=== PATIENT | male | born 1995 | race Two or more races ===

== ENCOUNTER 2021-09-05 21:59 | Emergency (ER) | payer SELFPAY ==
[~2021-09-05] VITALS: Ht 177.8 cm; Wt 73.5 kg
[2021-09-05 22:00] VITALS: BP 149/89
== END 2021-09-05 22:52 | disposition home or self-care (01) ==
LOC: ER 22:03
DX: S60.511A Abrasion of right hand, initial encounter (principal); V43.52XA Car driver injured in collision with other type car in traffic accident, initial encounter; Y93.89 Activity, other specified; Y92.410 Unspecified street and highway as the place of occurrence of the external cause; Y99.8 Other external cause status